=== PATIENT | female | born 2005 | race African-American/Black ===

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

== ENCOUNTER 2023-02-20 11:10 | Emergency (ER) | payer MEDICAID, SELFPAY ==
[2023-02-20 11:11] VITALS: BP 117/77; PULSE 97; RESP 14; TEMP 37.3; O2SAT 98; BMI 31.7
--- NOTE | 2023-02-20 11:33 | EX.ED.VIS.UR ---
HPI HPI - URI History of Present Illness Chief Complaint: Sore Throat Detail of Chief Complaint: Sore throat with fever and no cough Informant: patient and parent Onset/Context/Timing Onset: Yesterday Context: Sudden Onset Timing: Continuous Quality: Pain Location: Throat Current Severity: Mild Maximum Severity: Moderate Worsened by: Swallowing, Eating Solids and Drinking Liquids Relieved by: - (Nothing) Associated Symptoms Associated Symptoms: Negative for Nasal Congestion, Headache, Sinus Pressure, Myalgias, Nausea, Vomiting, Diarrhea, Shortness of Breath, Chest Pain, Nonproductive cough or Productive Cough Narrative Narrative: Patient is a 17-year-old who presents with sore throat. She has had documented temperature to 100.1 ?F. She denies headache. Denies rhinorrhea, congestion postnasal drainage. She denies cough. She denies history rheumatic fever or heart murmur. She denies rash. She denies joint pain or swelling. She denies discoloration of her urine. There are ill coworkers. She does not know what they are ill with. She denies myalgias or arthralgias. Prior similar symptoms: No Recent Illness/Hospitalization: No ROS ROS ED Constitutional Constitutional ED: Reports fever(s); Denies chills, subjective or sweats Eyes Eyes: Denies blurry vision, change in vision or diplopia ENT ENT ED: Reports sore throat; Denies ear pain or rhinorrhea Cardiovascular Cardiovascular: Denies chest pain, palpitations or racing heartbeat Respiratory/Chest Respiratory/Chest: Denies cough, dyspnea or dyspnea on exertion Gastrointestinal Gastrointestinal: Denies abdominal pain, nausea or vomiting Genitourinary Genitourinary ED: Denies dysuria, hematuria or urinary frequency Musculoskeletal Musculoskeletal: Denies arthralgias, myalgias or neck pain Integumentary Denies rash Neurologic Neurologic: Denies headache(s) [facility] Medical History Acute right otitis media Acute sinusitis, unspecified Home Medications methylprednisolone 4 mg tablets in a dose pack (Medrol (Chidi)) See Rx Instructions PO PER PKG DIR #21 tabs 02/19/23 [Rx Last Taken Unknown] Allergy/AdvReac Type Severity Reaction Status Date / Time No Known Allergies Allergy Verified 02/20/23 11:11 Family History Other Diabetes Heart disease Social History (Updated 02/20/23 @ 11:[address] Galen Gamble MD) household members: family Smoking Status: Never smoker EXAM Physical Exam Const Vital Signs: 02/20/23 11:11 Temperature 99.2 F H Temperature Source Temporal Pulse Rate 97 Respiratory Rate 14 Blood Pressure 117/77 Blood Pressure Mean 90 Pulse Ox 98 Oxygen Delivery Method Room Air Vital signs are normal. Positive well nourished and well developed General Appearance ED: well developed and NAD; Negative for cyanotic, diaphoretic or pallor HEENT Reports moist mucous membranes normocephalic and atraumatic Throat: posterior oropharynx abnormal Positive for erythema; Negative for tonsils abnormal Eyes PERRL and EOMs intact bilaterally General Eye ED: Negative for pale conjunctiva or scleral icterus Neck no lymphadenopathy, supple, no meningeal signs and no JVD Neck Narrative: Trachea is midline. There is no in-store extra stridor. There is no drooling. General: Negative for anterior neck swelling Resp normal respiratory effort and clear to auscultation bilaterally Cardio S1 normal heart sound, S2 normal heart sound and no murmurs Rate: regular rate Rhythm: regular rhythm Extremity normal to inspection and full ROM Neuro oriented x3 and CN's II-XII intact bilaterally Sensorium / Orientation: alert Psych mental status grossly normal Skin General Skin Exam: Negative for jaundice or pallor Lesions: no lesions Rashes: no rashes MDM MDM MDM Narrative Medical decision making narrative: Patient Centor score is 2. Will obtain rapid strep. If positive will treat for strep pharyngitis otherwise treatment is symptomatic and will send culture. History & Record Review Additional record(s) reviewed:: Prior ED visit (Prior records reviewed. Seen for cystitis, pharyngitis, upper respiratory infection and back pain.) and Prior labs Lab Data Attestation: I reviewed the patient's lab results. Lab results narrative: Rapid strep test was negative. Treatment is symptomatic. Patient and mother were informed that culture was sent. If this is positive the hospital will contact her and she will be placed on antibiotics. Discharge Plan Triage Chief Complaint: Sore Throat ED Provider: Galen Gamble Dx/Rx/DC Orders Clinical Impression: Fever, Acute viral pharyngitis Instructions: ED Pharyngitis, Report Pending Prescriptions: No Action methylprednisolone [Medrol (Chidi)] 4 mg tablets,dose pack See Rx Instructions PO PER PKG DIR Qty: 21 0RF Rx Instructions: PO PER PKG DIR Primary Care Provider: Care Physician,No Primary Referrals: Care Physician,No Primary [Primary Care Provider] - Doctor,Your [Non-Staff] - 1 Week if not improving Activity Restrictions/Additional Instructions: 1. If you are unable to swallow liquids or solids follow-up with your doctor. 2. If you have drooling return to the emergency department immediately. 3. You may either use Chloraseptic spray for your throat discomfort or Cepastat lozenges. Disposition Disposition: Home, Self Care
== END 2023-02-20 12:14 | disposition home or self-care (01) ==
PROVIDERS: Emergency Provider Emergency Medicine; Visit Provider Emergency Medicine
DX: J02.8 Acute pharyngitis due to other specified organisms (principal)
CPT/HCPCS: 87880; 99282

== ENCOUNTER → 2023-11-23 | Outpatient (CLI) | payer MEDICAID, SELFPAY ==
--- NOTE | 2023-11-23 13:00 | RAD_ITS ---
STUDY: X-RAY - LUMBAR SPINE REASON FOR EXAM: Female, 18 years old. Low back pain TECHNIQUE: 4 view(s) of the lumbar spine were obtained. COMPARISON: None FINDINGS: Normal lumbar lordosis. There is no substantial scoliosis. There is a normal alignment of the vertebrae. Normal vertebral bodies and endplates. Normal disc space heights. The soft tissue structures are unremarkable. RAD/L/S Spine Min 4 Views IMPRESSION: Normal x-ray examination of the lumbar spine. Electronically Signed: Jaron Rodriguez MD at 13:15 EDT ,
== END | disposition home or self-care (01) ==
LOC: MTRAD 13:00
PROVIDERS: Referring Provider Physician Assistant Surgical; Visit Provider Physician Assistant Surgical
DX: S39.012A Strain of muscle, fascia and tendon of lower back, initial encounter (principal)
CPT/HCPCS: 72110